=== PATIENT | male | born 1970 | race Caucasian/White ===

== ENCOUNTER 2021-03-10 21:45 | Emergency (ER) | payer BC ==
[2021-03-11] MEDS ORDERED: ERYTHROMYCIN OP1 GM OS (00:57)
[2021-03-11] MEDS ORDERED: NAPROSYN500 MG PO (00:57)
== END 2021-03-11 01:04 | disposition home or self-care (01) ==
LOC: ER1 21:45
DX: S05.02XA Injury of conjunctiva and corneal abrasion without foreign body, left eye, initial encounter (principal); I10 Essential (primary) hypertension; F17.200 Nicotine dependence, unspecified, uncomplicated; Z88.0 Allergy status to penicillin; W22.8XXA Striking against or struck by other objects, initial encounter
CPT/HCPCS: 65220; 99282